=== PATIENT | male | born 1985 | race Caucasian/White ===

== ENCOUNTER 2019-03-13 11:50 | Emergency (ER) | payer SELFPAY ==
[~2019-03-13] VITALS: Ht 185.4 cm; Wt 86.2 kg
[2019-03-13] MEDS ORDERED: NEOMY/BACITRA/POLYMYXIN B OINT UD PACKET TP ONE (12:15)
[2019-03-13] MEDS ORDERED: HYDROCODONE/APAP 5-325MG TABLET PO ONE (12:15)
[2019-03-13] MEDS ORDERED: TDAP DIPH,PERTUSS,TET VAC/PF 0.5 ML DISP.SYRIN IM ONE ×2 (12:15→12:20)
[2019-03-13] MEDS ORDERED: BACITRACIN OPHT OINT 3.5 GM TUBE ONE (12:20)
[2019-03-13] MEDS ORDERED: HYDROCODONE/APAP 5-325MG TABLET ONE (12:20)
[2019-03-13] MEDS ORDERED: LIDOCAINE HCL 1% 20 ML VIAL TP ONE (12:30)
[2019-03-13 13:19] VITALS: BP 134/81
--- NOTE | 2019-03-13 13:58 | NUR ---
Patient discharged to home in stable conditon. Written and verbal after care instructions given. Patient verbalizes understanding of instructions. Ambulated from ER with stable gait. All belongings with patient. Patient will be driven home by friend.
--- NOTE | 2019-03-13 16:25 | NUR ---
Patient discharged to home in stable conditon. Written and verbal after care instructions given. Patient verbalizes understanding of instructions. Patient revisited ER due to new laceration noted to submandibular area. ER MD placed sutures to this area. patient is cleared for d/c.
== END 2019-03-13 14:00 | disposition home or self-care (01) ==
LOC: ER 11:51
DX: S01.81XA Laceration without foreign body of other part of head, initial encounter (principal); S01.511A Laceration without foreign body of lip, initial encounter; S51.812A Laceration without foreign body of left forearm, initial encounter; S51.811A Laceration without foreign body of right forearm, initial encounter; X58.XXXA Exposure to other specified factors, initial encounter; Y93.89 Activity, other specified; Y92.89 Other specified places as the place of occurrence of the external cause; Y99.8 Other external cause status
CPT/HCPCS: 12015; 90471; 90715; 99284; J3490; A4217; A4663; J3590

== ENCOUNTER 2019-04-17 20:33 | Emergency (ER) | payer SELFPAY ==
[~2019-04-17] VITALS: Ht 185.4 cm; Wt 83.9 kg
--- NOTE | 2019-04-17 21:15 | NUR ---
at bedside for suture removeal
--- NOTE | 2019-04-17 21:25 | NUR ---
Patient discharged to home in stable conditon. Written and verbal after care instructions given. Patient verbalizes understanding of instructions. Pt. d/c w/o signing d/c papers, all belongings w/ pt., ID band removed, ambulated off unit w/ steady gait, VSS, NAD
== END 2019-04-17 21:29 | disposition home or self-care (01) ==
LOC: ER 20:34
DX: S01.81XD Laceration without foreign body of other part of head, subsequent encounter (principal); W54.0XXD Bitten by dog, subsequent encounter
CPT/HCPCS: A4663